=== PATIENT | female | born 1965 ===

== ENCOUNTER 2024-09-18 20:09 | Emergency (ER) | payer OTHER ==
[~2024-09-18] VITALS: Ht 165.1 cm; Wt 65.2 kg
[2024-09-18] MEDS ORDERED: AMOX-419 PO (22:27)
[2024-09-18] MEDS ORDERED: PRED20TA PO (22:27)
[2024-09-18] MEDS: ondansetron 4mg rapidly disintigrating tab PO ONE (22:39)
[2024-09-18] MEDS: acetaminophen 325mg tablet PO ONE (22:39)
[2024-09-18] MEDS: predniSONE 20 mg tablet PO ONE (22:39)
[2024-09-18] MEDS: amox tr/potassium clavulanate 500mg/125mg TAB PO ONE (22:39)
[2024-09-18 22:40] VITALS: BP 121/82; PULSE 91; RESP 18; TEMP 98.6; O2SAT 94
== END 2024-09-18 22:41 | disposition home or self-care (01) ==
LOC: ER 20:10
DX: J45.909 Unspecified asthma, uncomplicated (principal); J18.9 Pneumonia, unspecified organism
CPT/HCPCS: 71045; 99283

== ENCOUNTER 2024-12-04 23:49 | Emergency (ER) | payer MEDICAID ==
[~2024-12-04] VITALS: Ht 154.9 cm; Wt 62.0 kg
[2024-12-04 23:58] VITALS: BP 149/88; PULSE 113; RESP 18; O2SAT 96
[2024-12-05 00:05] VITALS: TEMP 97.8
== END 2024-12-05 01:09 | disposition left against medical advice (07) ==
LOC: ER 23:50
DX: J00 Acute nasopharyngitis [common cold] (principal); Z53.21 Procedure and treatment not carried out due to patient leaving prior to being seen by health care provider

== ENCOUNTER 2025-05-18 13:58 | Emergency (ER) | payer MEDICAID ==
[~2025-05-18] VITALS: Ht 152.4 cm; Wt 72.1 kg
[2025-05-18 14:14] VITALS: TEMP 98.4
--- NOTE | 2025-05-18 14:18 | Physician Documentation ---
History of Present Illness ~ Chief Complaint: Dizziness Stated Complaint: DIZZINESS Time Seen by MD: 14:18 HPI This is a 59-year-old female who was driving home from work when she had a couple episodes of dizziness. 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 She denies chest pain or shortness of breath, any other symptoms. Medication Reconciliation Allergies: Coded Allergies: Sulfa (Sulfonamide Antibiotics) (Verified Allergy, Unknown, 05/18/25) Scheduled Nitrofurantoin Monohyd/M-Cryst (Macrobid 100 mg Capsule), 1 CAP PO Q12H Review of Systems ROS As stated above in the HPI, otherwise all systems are reviewed and negative. Physical Exam Vital Signs: Temperature: 98.4, Heart Rate: 94, Respiratory Rate: 16, BP: 110/80, Pulse Oximetry: 97, Weight: 72.100 Oxygen Flow Rate: 0 Physical Exam General: Alert, no apparent distress. Respiratory: Lungs clear, no respiratory distress. Chest: No accessory muscle use. Cardiovascular: Regular rate and rhythm, no murmurs. Gastrointestinal: Soft, nontender, nondistended. Bowels sounds present. Extremities: Normal range of motion, no deformity. Neurologic: Oriented x4. Psychiatric: Normal mood and affect. Skin: Normal color, warm and dry. No edema, no ecchymosis. Progress Results/Orders Results/Orders Orders - LOREN BROCK NP Electrocardiogram (05/18/25 ) Completed Orders - LOREN BROCK [employer]IST Drug Screen, Urine (05/18/25 14:18) CMP (05/18/25 14:18) Vital Signs 05/18/25 14:14 Temp 98.4 Pulse 94 Resp 16 B/P (MAP) 110/80 Pulse Ox 97 O2 Flow Rate 0 Laboratory Tests Test 05/18/25 14:20 05/18/25 14:31 Urine Specimen Description Cln catch midstream Urine Color Yellow Urine Clarity Clear Urine pH 7.0 Urine Specific [place] 1.010 Urine Protein Negative Urine Glucose (UA) Negative Urine Ketones Negative Urine Occult Blood Negative Urine Nitrite Negative Urine Bilirubin Negative Urine Urobilinogen 0.2 Urine Leukocyte Esterase Small H Urine RBC None seen Urine WBC 0-4 Urine Squamous Epithelial Cells Few Urine Bacteria None seen Urine Culture Indicated Indicated Volume Urine Centrifuged 10 ml Urine Comment Urine Opiates Screen Negative Urine Methadone Screen Negative Urine Fentanyl Screen Negative Urine Barbiturates Screen Negative Urine Phencyclidine Screen Negative Urine Amphetamines Screen Negative Urine Benzodiazepines Screen Negative Urine Cocaine Screen Negative Urine Cannabinoids Screen Negative Drug Screen Comment White Blood Count 7.8 Red Blood Count 4.64 Hemoglobin 14.1 Hematocrit 41.9 Mean Corpuscular Volume 90.3 Mean Corpuscular Hemoglobin 30.4 Mean Corpuscular Hemoglobin Concent 33.7 Red Cell Distribution Width 13.2 Platelet Count 218 Mean Platelet Volume 8.4 Neutrophils (%) (Auto) 63.3 Lymphocytes (%) (Auto) 22.7 Monocytes (%) (Auto) 10.2 Eosinophils (%) (Auto) 3.4 Basophils (%) (Auto) 0.4 Neutrophils # (Auto) 5.0 Lymphocytes # (Auto) 1.8 Monocytes # (Auto) 0.8 Eosinophils # (Auto) 0.3 Basophils # (Auto) 0.0 CBC Comment Sodium Level 141 Potassium Level 3.7 Chloride Level 106 Carbon Dioxide Level 26.0 Anion Gap 9 Blood Urea Nitrogen 11 Creatinine 0.95 H Estimated GFR/1.73 m2 61 BUN/Creatinine Ratio 11.6 Glucose Level 132 H Calcium Level 8.6 Total Bilirubin 0.2 Aspartate Amino Transf (AST/SGOT) 24 Alanine Aminotransferase (ALT/SGPT) 25 Alkaline Phosphatase 68 Troponin I High Sensitivity 7 Pro-B-Type Natriuretic Peptide 59 Total Protein 7.1 Albumin 3.3 L Globulin 3.8 Albumin/Globulin Ratio 0.9 L Chemistry Comments Microbiology Date/Time Source Procedure Growth Status 05/18/25 14:40 Urine Clean Catch Midstream Urine Culture - Preliminary Culture received. Resulted EKG/XRAY/CT/US/VASC/MRI EKG : Additional Comment 1423 EKG interpreted to show sinus rhythm rate of 87, no ectoopy. No ST segment elevation. Chest X-Ray : Additional Comments [address], [facility] [address] DIAGNOSTIC RADIOLOGY Patient: SOHAM CESAR Medical Record: [id number] [facility] : 1965, Age: 59 Sex: Female Location: ER Patient Status: [facility] ER Service Date/Time: 05/18/25/ 1418 Ordering Physician: ANGELICA DEL ANGEL MD Exam: CHEST,SINGLE VIEW CHEST RADIOGRAPH Indication: CP Technique: Single frontal view of the chest was obtained COMPARISON: DI CHEST,SINGLE VIEW on DOS: 09/18/24 FINDINGS: Lines and Tubes: None Lungs: Clear Pleura: No effusion. No pneumothorax. Cardiomediastinal contours: Unremarkable Bones: Unremarkable IMPRESSION: No acute disease. Electronically Signed by:RUTHIE BEASLEY MD Date & Time: 05/18/25 144 Dictated by: RUTHIE BEASLEY MD Dictation date and time: 05/18/25 1435 Primary Care Provider: NO PRIMARY CARE PROVIDER cc: ANGELICA DEL ANGEL MD ~ Medical Decision Making Additional information obtaine: old records Findings Most recent visit to this facility on 09/18/2024 for community-acquired pneumonia. Differential Dx:Considerations: Include: anemia, CVA, dehydration, dysrhythmia, electrolyte imbalance, encephalopathy, Guillain-[place], hypoglycemia, hypotension, hypovolemia, labyrinthitis, Meniere's disease, myasathenia gravis, myocardial infarction, pulmonary embolus, renal failure, respiratory failure, TIA, VBI, vertigo central, vertigo peripheral, vestibular neuronitis Departure Time of Disposition: 16:30 Disposition: 01 HOME / SELF CARE / HOMELESS Impression: Primary Impression: Dizziness Additional Impression: UTI (urinary tract infection) Condition: Stable Discharge Instructions: Dizziness, Urinary Tract Infection, Adult Additional Instructions: Labs normal with negative drug screen except mild urinary tract infection with culture pending. Normal EKG, no evidence of heart issues/heart attack. Referrals: NO PRIMARY CARE PROVIDER (PCP) Prescriptions Nitrofurantoin Monohyd/M-Cryst (Macrobid 100 mg Capsule) 100 Mg Capsule 1 CAP PO Q12H for 5 Days, #10 CAP 0 Refills Prov: LOREN BROCK [employer]IST 05/18/25 Education Educated: Patient Educated regarding: diagnosis, treatment, prognosis, need for follow up Signature Scribe Signature: x Attestation: The note accurately reflects work and decisions made by me.Loren Garcia NP 05/18/25 14:56 LOREN BROCK NP May 18, 2025 14:18
--- NOTE | 2025-05-18 14:26 | ELECTROCARDIOGRAPH REPORT ---
[facility] Test Date: 2025-05-18 Test Time: 14:23:20 Pat Name: SOHAM CESAR Department: [facility] Patient ID: [id number] Room: Gender: F Director [employer]: : 1965 Requested By: ANGELICA DEL ANGEL Order Number: [id number] Reading MD: Dr. Nahum Celeste Measurements Intervals [place] Rate: 87 P: 55 TN: 121 QRS: 25 QRSD: 108 T: 48 QT: 353 QTc: 425 Interpretive Statements Sinus rhythm Anteroseptal infarct, age indeterminate Electronically Signed On 05-22-2025 20:44:[address] Nahum Celeste Please click the below link to view image of tracing.
[2025-05-18 14:31] LABS: LEUKOCYTE ESTERASE ,URINE SMALL (Neg); NITRITES, URINE NEGATIVE (Neg); OCCULT BLOOD,URINE NEGATIVE (Neg)
[2025-05-18 14:38] LABS: UA COLLECTION TYPE CLN CATCH MIDSTREAM
[2025-05-18 14:39] LABS: SQUAMOUS EPITHELIAL CELL,UR FEW /LPF (FEW)
--- NOTE | 2025-05-18 14:47 | RADIOLOGY REPORT ---
CHEST RADIOGRAPH Indication: CP Technique: Single frontal view of the chest was obtained COMPARISON: DI CHEST,SINGLE VIEW on DOS: 09/18/24 FINDINGS: Lines and Tubes: None Lungs: Clear Pleura: No effusion. No pneumothorax. Cardiomediastinal contours: Unremarkable Bones: Unremarkable IMPRESSION: No acute disease.
[2025-05-18 14:51] LABS: MEAN PLATELET VOLUME 8.4 FL (7.4-10.4); RED CELL DISTRIBUTION WIDTH 13.2 % (11.5-14.5)
[2025-05-18 14:52] LABS: URINE AMPHETAMINE SCREEN NEGATIVE (Neg); URINE BARBITUATE SCREEN NEGATIVE (Neg); URINE BENZODIAZEPINES SCREEN NEGATIVE (Neg); URINE CANNABINOID SCREEN NEGATIVE (Neg); URINE COCAINE SCREEN NEGATIVE (Neg); URINE METHADONE SCREEN NEGATIVE (Neg); URINE OPIATE SCREEN NEGATIVE (Neg); URINE PHENCYCLIDINE SCREEN NEGATIVE (Neg)
[2025-05-18 15:36] LABS: CREATININE 0.95 MG/DL (0.40-0.90); TOTAL CARBON DIOXIDE 26.0 MMOL/L (24-32); eCRCL 47 ML/MIN; eGFR 61 ML/MIN
[2025-05-18 15:42] LABS: PRO BRAIN NATRIURETIC PEPTIDE 59 PG/ML (0-125)
[2025-05-18] MEDS ORDERED: NITR100C6 PO (16:50)
[2025-05-18 17:18] VITALS: BP 110/80; PULSE 82; RESP 16; O2SAT 95
== END 2025-05-18 17:22 | disposition home or self-care (01) ==
LOC: ER 13:59
DX: R42 Dizziness and giddiness (principal); N39.0 Urinary tract infection, site not specified; Z88.2 Allergy status to sulfonamides; Z79.899 Other long term (current) drug therapy
CPT/HCPCS: 36415; 71045; 80053; 80305; 81001; 83880; 84484; 85025; 87088; 93005; 99285